=== PATIENT | female | born 1975 | race Caucasian/White ===

== ENCOUNTER 2022-02-06 13:06 | Inpatient (IN) ==
[2022-02-06] MEDS ORDERED: SODIUM CHLORIDE 0.9% 1000ML 2,000 ML IV ONE (14:33)
--- NOTE | 2022-02-06 14:35 | Emergency Department Note ---
Impression & Plan Pyelonephritis, Hypokalemia, Anemia, Leukocytosis, Nausea & vomiting ED Provider Note NAME: FIDEL GUTIERREZ AGE: 46 SEX: F : 1975 ARRIVES VIA: Walk-In INFORMANT: Patient ED PROVIDER(S): Melchor Perdomo DO CHIEF COMPLAINT: Nausea and vomiting HPI: Patient is a 46-year-old female who presents to the ER for nausea and vomiting. Symptoms started Saturday after 22 January. Initially started with fevers for the 2 days and nausea and vomiting. Patient was having diarrhea as well for 2 days. Diarrhea stopped about 10 days ago. The fever stopped after 2 days. She still been having intermittent nausea and vomiting after eating or drinking. She has no pain in her belly currently. Uncertain of her last bowel movement. No dysuria, urgency, or frequency. She has been seen in outside facility had blood cultures blood work and imaging. Blood work showed an elevated white count and her blood cultures were all negative. She has no other complaints at this time. She has been unable to give a stool sample. ROS: See above HPI for pertinent positives & negatives. A total of 10 systems reviewed and were otherwise negative. PAST MEDICAL HISTORY:See Below PAST SURGICAL HISTORY:See Below FAMILY HISTORY:See Below SOCIAL HISTORY:See Below HOME MEDICATIONS:See Below ALLERGIES:See Below VITALS:See Below PHYSICAL EXAMINATION: GENERAL: Sitting up in bed, alert, well appearing, well nourished, no distress, non-toxic EYE EXAM: normal conjunctiva. OROPHARYNX: no exudate, no erythema, lips, buccal mucosa, and tongue normal and mucous membranes are moist NECK: supple, no nuchal rigidity, no adenopathy, non-tender LUNGS: Clear to auscultation. Normal chest wall mechanics HEART: no murmurs, S1 normal and S2 normal ABDOMEN: abdomen soft, non-tender, normo-active bowel sounds, no masses, no rebound or guarding. UPPER EXTREMITIES: upper extremities are grossly normal. LOWER EXTREMITIES: No pitting edema. NEURO EXAM: Normal sensorium, cranial nerves II-XII grossly intact, normal speech, no gross weakness of arms, no gross weakness of legs. MEDICAL DECISION MAKING: Patient is a 46-year-old female who presents ER for above-stated complaint. IV was established blood work is obtained. Labs show a leukocytosis of 15,000. Mild anemia 10.5. Platelets were elevated. BMP with hypokalemia at 2.3. This was repleted IV with 10 mEq 2. LFTs were unremarkable. Magnesium was 1.7. Lipase was normal. UA does show leuks, whites and bacteria. There were no epithelial cells and this consistent with UTI. CT abdomen pelvis confirms pyelonephritis. She was given IV Rocephin as well as IV fluids. Updated bedside. Discussed with hospitalist admitted for further work-up. negative. Triage Nursing notes reviewed. Limited review of prior medical records performed Vital Signs: reviewed and remarkable for tachy Differential diagnosis: Differential diagnoses includes but is not limited to gastritis, peptic ulcer disease, GERD, gallbladder disease, pancreatitis, small bowel obstruction, acute coronary syndrome, pericarditis, ischemic bowel, irritable bowel disease, irritable bowel syndrome, appendicitis, diverticulitis, malignancy, hernia, urinary tract infection, torsion, /ectopic (if female), perforation, trauma, infectious. ER treatment provided: See below Diagnostics interpreted by me: ECG: none Cardiac Monitoring: An order was placed for continuous cardiac monitoring. The monitor shows a rate of 112 with sinus rhythm. Laboratory studies: As stated above and show below. Imaging studies: CT abdomen pelvis shows pyelonephritis Consultation(s): Discussed with RHINA Escobedo for further evaluation Procedures: none Critical Care: None Past Med/Surg History Medical History Anemia GERD (gastroesophageal reflux disease) History of migraine headaches Family History Other Family history non-contributory Social History Smoking Status: Never smoker Hx Alcohol Use: No Hx Substance Use: No Preferred Language: Azeri Communication Ability: Effective System Architect Required: No Beliefs That Will Affect Care: None Current Living Situation: Spouse Other Information That Helps Us Care for You: No Feels Safe at Home: Yes Safety Concerns: Feels Safe At This Time Assistive Devices: None Allergies Allergies Allergy/AdvReac Type Severity Reaction Status Date / Time No Known Allergies Allergy Unverified 02/06/22 17:34 Home Meds Home Medications Medication Instructions Recorded Confirmed acetaminophen 500 mg tablet 1,000 mg PO Q6H PRN Pain 02/06/22 02/06/22 (Tylenol Extra Strength) diphenhydramine HCl 25 mg capsule 25 - 50 mg PO DIRECTED PRN 02/06/22 02/06/22 (Benadryl) allergies omeprazole 40 mg capsule,delayed 40 mg PO DAILY 02/06/22 02/06/22 release ondansetron HCl 4 mg tablet 4 mg PO Q8 PRN Nausea 02/06/22 02/06/22 sumatriptan succinate 100 mg tablet 100 mg PO DIRECTED PRN onset of 02/06/22 02/06/22 migraine topiramate 100 mg tablet 100 mg PO HS 02/06/22 02/06/22 Results & Data (ED) Vital Signs Vital Signs - 24 hr 02/06/22 13:31 02/06/22 15:00 02/06/22 18:00 Temperature 36.9 C Temperature Source Temporal Artery Scan Pulse Rate 118 H Pulse Rate [Radial] 105 H 88 Pulse Rhythm [Radial] Regular Respiratory Rate 18 20 21 Respiratory Effort / Characteristics Non-Labored Respiratory Depth Normal Respiratory Pattern Regular Blood Pressure 129/82 Blood Pressure [Right Arm] 124/84 128/81 Blood Pressure Mean 97 Blood Pressure Mean [Right Arm] 97 96 Pulse Oximetry 97 97 100 Oxygen Delivery Method Room Air Room Air Room Air Sepsis Recent Fever Within 48 Hours No Sepsis New/Unexplained Change in Mental Status No Sepsis Action Taken by Nursing No Action Required Laboratory Data Result diagrams: 02/06/22 14:35 02/06/22 14:35 Lab Results 02/06/22 02/06/22 02/06/22 Range/Units 14:35 14:35 14:45 WBC 15.20 H (4.8-10.8) K/ul RBC 3.87 L (3.93-5.22) M/uL Hgb 10.5 L (12.0-16.0) g/dl Hct 33.7 L (34.1-44.9) % MCV 87.1 (80.0-100.0) fL MCH 27.1 (25.0-34.0) pg MCHC 31.2 L (32.0-36.0) g/dL RDW Std Deviation 53.1 H (36.4-46.3) fL RDW Coeff of Gabriela 16.5 H (11.5-14.5) % Plt Count 782 H (130-400) K/uL MPV 10.2 (9.4-12.3) fL Immature Gran % (Auto) 0.5 % Neut % (Auto) 82.5 % Lymph % (Auto) 11.4 % Clinch % (Auto) 4.4 % Eos % (Auto) 0.9 % Baso % (Auto) 0.3 % Neut # (Auto) 12.54 H (1.4-6.5) K/uL Lymph # (Auto) 1.74 (1.2-3.4) K/uL Clinch # (Auto) 0.67 (0.24-0.82) K/uL Eos # (Auto) 0.13 (0-0.50) K/uL Baso # (Auto) 0.04 (0-0.2) K/uL Immature Gran # (Auto) 0.08 H (0.00-0.02) K/uL Sodium 136 (136-145) mmol/L Potassium 2.3 L* (3.5-5.1) mmol/L Chloride 98 (98-107) mmol/L Carbon Dioxide 27 (21-32) mmol/L Anion Gap 11 (3-11) BUN 9 (6-23) mg/dl Creatinine 1.05 (0.6-1.2) mg/dl Est Cr Clr Drug Dosing 65.9 ml/min Est GFR ( Amer) 74.8 ml/min Est GFR (Non-Af Amer) 64.5 ml/min BUN/Creatinine Ratio 8.6 L (10-20) Glucose 106 H (70-99(Fasting)) mg/dl Calcium 8.7 (8.5-10.1) mg/dl Phosphorus (2.5-4.9) mg/dl Magnesium (1.7-2.4) mg/dl Total Bilirubin 0.3 (0.2-1.0) mg/dl AST 8 L (13-39) U/L ALT 6 L (7-52) U/L Alkaline Phosphatase 94 (34-104) U/L Total Protein 7.5 (6.0-8.3) gm/dl Albumin 3.4 (3.4-5.0) gm/dl Globulin 4.1 H (2.5-4.0) gm/dl Albumin/Globulin Ratio 0.8 L (0.9-2) Lipase 69 (11-82) U/L Urine Color Urine Appearance (Clear) Urine pH (4.5-7.5) Ur Specific [place] (1.000-1.030) Urine Protein (Negative) Urine Glucose (UA) (Negative) Urine Ketones (Negative) Urine Blood (Negative) Urine Nitrite (Negative) Urine Bilirubin (Negative) Urine Urobilinogen (Negative) Ur Leukocyte Esterase (Negative) Urine WBC (Auto) (0-5) /hpf Urine RBC (Auto) (0-4) /hpf U Hyaline Cast (Auto) (0-5) /lpf U Epithel Cells (Auto) (0-5) /lpf Urine Bacteria (Auto) (Negative) Ur Renal Epithelial Cell (0-5) /lpf POC Ur Test NEG (NEG) SARS-CoV-2, RNA, NAAT (NEGATIVE) 02/06/22 02/06/22 02/06/22 Range/Units 14:55 15:52 15:52 WBC (4.8-10.8) K/ul RBC (3.93-5.22) M/uL Hgb (12.0-16.0) g/dl Hct (34.1-44.9) % MCV (80.0-100.0) fL MCH (25.0-34.0) pg MCHC (32.0-36.0) g/dL RDW Std Deviation (36.4-46.3) fL RDW Coeff of Gabriela (11.5-14.5) % Plt Count (130-400) K/uL MPV (9.4-12.3) fL Immature Gran % (Auto) % Neut % (Auto) % Lymph % (Auto) % Clinch % (Auto) % Eos % (Auto) % Baso % (Auto) % Neut # (Auto) (1.4-6.5) K/uL Lymph # (Auto) (1.2-3.4) K/uL Clinch # (Auto) (0.24-0.82) K/uL Eos # (Auto) (0-0.50) K/uL Baso # (Auto) (0-0.2) K/uL Immature Gran # (Auto) (0.00-0.02) K/uL Sodium (136-145) mmol/L Potassium (3.5-5.1) mmol/L Chloride (98-107) mmol/L Carbon Dioxide (21-32) mmol/L Anion Gap (3-11) BUN (6-23) mg/dl Creatinine (0.6-1.2) mg/dl Est Cr Clr Drug Dosing ml/min Est GFR ( Amer) ml/min Est GFR (Non-Af Amer) ml/min BUN/Creatinine Ratio (10-20) Glucose (70-99(Fasting)) mg/dl Calcium (8.5-10.1) mg/dl Phosphorus 2.3 L (2.5-4.9) mg/dl Magnesium 1.7 (1.7-2.4) mg/dl Total Bilirubin (0.2-1.0) mg/dl AST (13-39) U/L ALT (7-52) U/L Alkaline Phosphatase (34-104) U/L Total Protein (6.0-8.3) gm/dl Albumin (3.4-5.0) gm/dl Globulin (2.5-4.0) gm/dl Albumin/Globulin Ratio (0.9-2) Lipase (11-82) U/L Urine Color Yellow Urine Appearance Clear (Clear) Urine pH 6.5 (4.5-7.5) Ur Specific [place] 1.006 (1.000-1.030) Urine Protein Negative (Negative) Urine Glucose (UA) Negative (Negative) Urine Ketones Negative (Negative) Urine Blood Negative (Negative) Urine Nitrite Negative (Negative) Urine Bilirubin Negative (Negative) Urine Urobilinogen Negative (Negative) Ur Leukocyte Esterase 2+ H (Negative) Urine WBC (Auto) 5-10 H (0-5) /hpf Urine RBC (Auto) 0-4 (0-4) /hpf U Hyaline Cast (Auto) 1-5 (0-5) /lpf U Epithel Cells (Auto) 0-5 (0-5) /lpf Urine Bacteria (Auto) 1+ H (Negative) Ur Renal Epithelial Cell 0-5 (0-5) /lpf POC Ur Test (NEG) SARS-CoV-2, RNA, NAAT (NEGATIVE) 02/06/22 Range/Units 16:02 WBC (4.8-10.8) K/ul RBC (3.93-5.22) M/uL Hgb (12.0-16.0) g/dl Hct (34.1-44.9) % MCV (80.0-100.0) fL MCH (25.0-34.0) pg MCHC (32.0-36.0) g/dL RDW Std Deviation (36.4-46.3) fL RDW Coeff of Gabriela (11.5-14.5) % Plt Count (130-400) K/uL MPV (9.4-12.3) fL Immature Gran % (Auto) % Neut % (Auto) % Lymph % (Auto) % Clinch % (Auto) % Eos % (Auto) % Baso % (Auto) % Neut # (Auto) (1.4-6.5) K/uL Lymph # (Auto) (1.2-3.4) K/uL Clinch # (Auto) (0.24-0.82) K/uL Eos # (Auto) (0-0.50) K/uL Baso # (Auto) (0-0.2) K/uL Immature Gran # (Auto) (0.00-0.02) K/uL Sodium (136-145) mmol/L Potassium (3.5-5.1) mmol/L Chloride (98-107) mmol/L Carbon Dioxide (21-32) mmol/L Anion Gap (3-11) BUN (6-23) mg/dl Creatinine (0.6-1.2) mg/dl Est Cr Clr Drug Dosing ml/min Est GFR ( Amer) ml/min Est GFR (Non-Af Amer) ml/min BUN/Creatinine Ratio (10-20) Glucose (70-99(Fasting)) mg/dl Calcium (8.5-10.1) mg/dl Phosphorus (2.5-4.9) mg/dl Magnesium (1.7-2.4) mg/dl Total Bilirubin (0.2-1.0) mg/dl AST (13-39) U/L ALT (7-52) U/L Alkaline Phosphatase (34-104) U/L Total Protein (6.0-8.3) gm/dl Albumin (3.4-5.0) gm/dl Globulin (2.5-4.0) gm/dl Albumin/Globulin Ratio (0.9-2) Lipase (11-82) U/L Urine Color Urine Appearance (Clear) Urine pH (4.5-7.5) Ur Specific [place] (1.000-1.030) Urine Protein (Negative) Urine Glucose (UA) (Negative) Urine Ketones (Negative) Urine Blood (Negative) Urine Nitrite (Negative) Urine Bilirubin (Negative) Urine Urobilinogen (Negative) Ur Leukocyte Esterase (Negative) Urine WBC (Auto) (0-5) /hpf Urine RBC (Auto) (0-4) /hpf U Hyaline Cast (Auto) (0-5) /lpf U Epithel Cells (Auto) (0-5) /lpf Urine Bacteria (Auto) (Negative) Ur Renal Epithelial Cell (0-5) /lpf POC Ur Test (NEG) SARS-CoV-2, RNA, NAAT NEGATIVE (NEGATIVE) Administered Medications Potassium Phosphate 21 mmol/ (Dextrose) 507 mls @ 144 mls/hr IV ONE ONE Stop: 02/06/22 21:46 Last Admin: 02/06/22 18:40 Dose: 144 mls/hr Documented By: VIDAL Discontinued Medications Sodium Chloride (Nss 1000ml) 2,000 mls @ 999 mls/hr IV .Q2H1M ONE Stop: 02/06/22 16:33 Last Admin: 02/06/22 14:53 Dose: 999 mls/hr Documented By: WALESKA Potassium Chloride (K Jeronimo / Wtr) 10 meq in 100 mls @ 100 mls/hr IV Q1H [facility]; Protocol Stop: 02/06/22 17:59 Last Admin: 02/06/22 18:28 Dose: 100 mls/hr Documented By: Infusion: 02/06/22 17:00 Dose: 100 mls/hr Documented By: Admin: 02/06/22 16:00 Dose: 100 mls/hr Documented By: VIDAL Ceftriaxone Sodium (Rocephin) 2,000 mg in 70 mls @ 140 mls/hr IV NOW STA Stop: 02/06/22 17:30 Last Infusion: 02/06/22 18:49 Dose: 0 mls/hr Documented By: Admin: 02/06/22 18:28 Dose: 140 mls/hr Documented By: VIDAL Ioversol (Optiray 320 100ml) 94 ml IV ONCE ONE Stop: 02/06/22 16:34 Last Admin: 02/06/22 16:33 Dose: 94 ml Documented By: CAMPBELL Ketorolac Tromethamine (Ketorolac Tromethamine 15 Mg/Ml Vial) 15 mg IV NOW ONE Stop: 02/06/22 16:40 Last Admin: 02/06/22 16:46 Dose: 15 mg Documented By: VIDAL Pantoprazole Sodium (Pantoprazole 40 Mg Tab) 40 mg PO NOW STA Stop: 02/06/22 18:06 Last Admin: 02/06/22 18:28 Dose: 40 mg Documented By: VIDAL Imaging Data Radiologist's Impression: Abdomen/Pelvis CT 02/06/22 14:33 CT SCAN OF THE ABDOMEN AND PELVIS WITH IV CONTRAST CLINICAL HISTORY: Nausea and vomiting COMPARISON STUDY: No priors. TECHNIQUE: Following the IV administration of 94 cc of Optiray 320, CT scan of the abdomen and pelvis is performed from the lung bases to the proximal femora. Images are reviewed in the axial, sagittal, and coronal planes. IV contrast was administered without complication. A dose lowering technique was utilized adhering to the principles of ALARA. CT DOSE: 407.10 mGy.cm FINDINGS: Lung bases: The heart is normal in size and without pericardial effusion. The lung bases are clear. There is a small hiatal hernia. Liver: The contrast-enhanced liver is normal in size, contour, and attenuation. There is no intrahepatic biliary ductal dilatation. The hepatic veins and portal veins are patent. Gallbladder: Unremarkable. Spleen: Normal in size and attenuation. Pancreas: Unremarkable. Adrenal glands: Unremarkable. Kidneys: The contrast enhanced kidneys are normal in size and without hydroneph rosis. There is heterogeneous enhancement of both kidneys. Urothelial thickening and enhancement is suggested involving both kidneys and along the course of the ureters. Bilateral perinephric stranding is observed. There is a 3 mm nonobstructing calculus in the right kidney. Abdominal vasculature: The abdominal aorta is normal in course and caliber. Bowel: There is no bowel obstruction. There are scattered colonic diverticula without CT evidence of acute diverticulitis. The appendix is well-visualized and normal. Peritoneum: There is no intraperitoneal free air or abdominal ascites. There is a fat-containing umbilical hernia. Lymphadenopathy: None. Pelvic viscera: A labial piercing is noted. The bladder wall appears mildly thickened. The uterus and adnexa are normal as visualized. Skeletal structures: No lytic or blastic lesions are seen. IMPRESSION: 1. Findings suggest cystitis with bilateral ascending urinary tract infection/pyelonephritis. Correlate with clinical findings and urinalysis. 2. There is a small nonobstructing right renal calculus. 3. Normal appendix. ACT 112: Negative or not required by law. Electronically signed by: Nakul Dupont M.D. 02/06/2022 4:40 PM Discharge Plan Visit Data Chief Complaint: Vomiting Stated Complaint: VOMITING ED Provider: Melchor Perdomo Discharge Problem: Pyelonephritis, Hypokalemia, Anemia, Leukocytosis, Nausea & vomiting Patient Disposition: Admitted As Inpatient Forms Stand Alone Forms: [facility] Prescriptions Prescriptions: No Action sumatriptan succinate 100 mg tablet 100 mg PO DIRECTED PRN (Reason: onset of migraine) Rx Instructions: may repeat in 2 hrs. ondansetron HCl 4 mg tablet 4 mg PO Q8 PRN (Reason: Nausea) omeprazole 40 mg capsule,delayed release(DR/EC) 40 mg PO DAILY acetaminophen [Tylenol Extra Strength] 500 mg Tablet 1,000 mg PO Q6H PRN (Reason: Pain) diphenhydramine HCl [Benadryl] 25 mg Capsule 25 - 50 mg PO DIRECTED PRN (Reason: allergies) topiramate 100 mg tablet 100 mg PO HS Referrals Referrals: PCP,NO [Physician] -
[2022-02-06 14:49] LABS: Basophils # (auto) 0.04 K/uL (0-0.2); Basophils % (auto) 0.3 %; Eosinophils # (auto) 0.13 K/uL (0-0.50); Eosinophils % (auto) 0.9 %; Hematocrit (blood only) 33.7 % (34.1-44.9); Hemoglobin 10.5 g/dl (12.0-16.0); Immature Granulocytes # (auto) 0.08 K/uL (0.00-0.02); Immature Granulocytes % (auto) 0.5 %; Lymphocytes # (auto) 1.74 K/uL (1.2-3.4); Lymphocytes % (auto) 11.4 %; Mean Corpuscular Hemoglobin 27.1 pg (25.0-34.0); Mean Corpuscular Hgb Conc 31.2 g/dL (32.0-36.0); Mean Corpuscular Volume 87.1 fL (80.0-100.0); Mean Platelet Volume 10.2 fL (9.4-12.3); Monocytes # (auto) 0.67 K/uL (0.24-0.82); Monocytes % (auto) 4.4 %; Neutrophils # (auto) 12.54 K/uL (1.4-6.5); Neutrophils % (auto) 82.5 %; Platelet Count 782 K/uL (130-400); RDW Coefficient of Variation 16.5 % (11.5-14.5); RDW Standard Deviation 53.1 fL (36.4-46.3); Red Blood Count 3.87 M/uL (3.93-5.22)
[2022-02-06 15:35] LABS: Albumin Globulin Ratio 0.8 (0.9-2); Albumin Level 3.4 gm/dl (3.4-5.0); BUN Creatinine Ratio 8.6 (10-20); Bilirubin,Total 0.3 mg/dl (0.2-1.0); Calcium 8.7 mg/dl (8.5-10.1); Creatinine Clr Calc Pharmacy 65.9 ml/min; Est GFR (African American) 74.8 ml/min; Est GFR (Non-African American) 64.5 ml/min; Globulin 4.1 gm/dl (2.5-4.0); Potassium 2.3 mmol/L (3.5-5.1); Total Protein 7.5 gm/dl (6.0-8.3)
[2022-02-06 15:46] LABS: Appearance Urine Clear (Clear); Bilirubin Urine Negative (Negative); Blood Urine Negative (Negative); Color Urine Yellow; Glucose Urine UA Negative (Negative); Ketones Urine Negative (Negative); Leukocyte Esterase Urine 2+ (Negative); Nitrite Urine Negative (Negative); Protein Urine Negative (Negative); Specific Gravity Urine 1.006 (1.000-1.030); Urobilinogen Urine Negative (Negative); pH Urine 6.5 (4.5-7.5)
[2022-02-06] MEDS: POTASSIUM CHLORIDE / WTR 10 MEQ/100 ML PLCT IV SCH ×3 (16:00→23:57)
[2022-02-06 16:01] LABS: RBC Urine Automated 0-4 /hpf (0-4)
[2022-02-06 16:02] LABS: Bacteria Urine Automated 1+ (Negative); Epithelial Cell Urine Auto 0-5 /lpf (0-5); Renal Epithelial Cells Urine 0-5 /lpf (0-5)
[2022-02-06] MEDS ORDERED: OPTIRAY 320 100ml IV ONE (16:33)
[2022-02-06] MEDS ORDERED: KETOROLAC TROMETHAMINE 15 MG/ML VIAL IV ONE (16:39)
--- NOTE | 2022-02-06 16:42 | CT Scan Report ---
CT SCAN OF THE ABDOMEN AND PELVIS WITH IV CONTRAST CLINICAL HISTORY: Nausea and vomiting COMPARISON STUDY: No priors. TECHNIQUE: Following the IV administration of 94 cc of Optiray 320, CT scan of the abdomen and pelvi s is performed from the lung bases to the proximal femora. Images are reviewed in the axial, sagittal , and coronal planes. IV contrast was administered without complication. A dose lowering technique wa s utilized adhering to the principles of ALARA. CT DOSE: 407.10 mGy.cm FINDINGS: Lung bases: The heart is normal in size and without pericardial effusion. The lung bases are clear. T here is a small hiatal hernia. Liver: The contrast-enhanced liver is normal in size, contour, and attenuation. There is no intrahepa tic biliary ductal dilatation. The hepatic veins and portal veins are patent. Gallbladder: Unremarkable. Spleen: Normal in size and attenuation. Pancreas: Unremarkable. Adrenal glands: Unremarkable. Kidneys: The contrast enhanced kidneys are normal in size and without hydronephrosis. There is hetero geneous enhancement of both kidneys. Urothelial thickening and enhancement is suggested involving bot h kidneys and along the course of the ureters. Bilateral perinephric stranding is observed. There is a 3 mm nonobstructing calculus in the right kidney. Abdominal vasculature: The abdominal aorta is normal in course and caliber. Bowel: There is no bowel obstruction. There are scattered colonic diverticula without CT evidence of acute diverticulitis. The appendix is well-visualized and normal. Peritoneum: There is no intraperitoneal free air or abdominal ascites. There is a fat-containing umbi lical hernia. Lymphadenopathy: None. Pelvic viscera: A labial piercing is noted. The bladder wall appears mildly thickened. The uterus and adnexa are normal as visualized. Skeletal structures: No lytic or blastic lesions are seen. IMPRESSION: 1. Findings suggest cystitis with bilateral ascending urinary tract infection/pyelonephritis. Correla te with clinical findings and urinalysis. 2. There is a small nonobstructing right renal calculus. 3. Normal appendix. ACT 112: Negative or not required by law. Electronically signed by: Nakul Dupont M.D. 02/06/2022 4:40 PM
[2022-02-06] MEDS ORDERED: cefTRIAXone SODIUM 2,000 MG/70 ML BAG IV STA (17:01)
--- NOTE | 2022-02-06 17:41 | History & Physical Report ---
Date of Service February 06, 2022 Assessment & Plan (1) Pyelonephritis: Plan: - WBCs, bacteria, leuk esterase on UA with pyelonephritis seen on CT A/P. Also with a nonobstructing 3 mm stone and right renal calculus. - Has been afebrile for almost 2 weeks, never with urinary symptoms but with persistent nausea and vomiting. - Rocephin 1 g every 12 hours - Received 2L NS bolus in ED, continue with maintenance fluids Normosol at 100 cc/hour - Tylenol ordered for pain/fever. Zofran, Phenergan ordered for nausea and vomiting. (2) Hypokalemia: Plan: - 2.3, after ongoing vomiting/poor p.o. intake over 2 weeks. - 2 bags KCl given in ED, with K-Phos repletion. Also will order 1 g IV mag--borderline normal at 1.7. - Recheck potassium this evening and with a.m. labs tomorrow. (3) Hypophosphatemia: Plan: - 2.9, in setting of ongoing nausea and vomiting x2 weeks. - Replete and recheck with a.m. labs. (4) Nausea & vomiting: Plan: - 2/2 pyelonephritis. Has been ongoing for 2 weeks with minimal p.o. intake. - After ABX and IV hydration, patient is feeling well and would like to try a liquid diet-- Will order for liquid diet and advance as tolerated by patient. - Antiemetics ordered as above. (5) Anemia: Plan: - Hgb 10.5, no evidence of acute bleeding, no baseline labs for reference. Patient had been told she is borderline anemic and should be on iron supplementation in past. - Likely low today as patient was on her period last week. - Follow on daily CBC. (6) GERD (gastroesophageal reflux disease): Plan: - On omeprazole at home, switch to hospital formulation--pantoprazole. - Dose given in ED per patient request. (7) History of migraine headaches: Plan: - Topiramate at night with sumatriptan as needed. Plan - Admit to med telemetry due to hypokalemia. - SCDs for DVT PPx, chemo PPx deferred. - Full code. History of Present Illness Chief Complaint: nausea with vomiting Primary Care Provider: Boubacar Forrest Lizzy Ramirez is a 46-year-old female with history of migraines and GERD who is presenting today with nausea and vomiting. Over the January weekend approximately 2 weeks ago, patient is experiencing mild low back pain and had a count of this to physical activity over the weekend. She then developed fevers with associated nausea and vomiting. After 2 days, her fevers have broke but she continued to be nauseous with frequent vomiting and inability to keep any food or liquids down. Presented to an outside hospital on 01/26, in which she was told she had an elevated white blood cell count and low potassium and was given IV fluids with potassium repletion and discharged home from the ED. Her symptoms persisted so she presented to another hospital ED on 01/29 and again was told she may have a viral infection, was hydrated and given potassium supplementation and sent home. It is now 1 week later and she is not feeling any better, continues to have frequent vomiting, and has not been able to keep anything beyond Jell-O down over the past week. She is still without fever/chills, diarrhea, constipation, chest pain, palpitations, shortness breath, cough, abdominal pain, back pain, or urinary symptoms. In ED, she initially presented tachycardic with heart rate at 118, otherwise vital signs are within normal limits and stable. Labs significant for WBC of 15.20, Hgb 10.5, potassium 2.3. UA with white blood cells, leuk esterase, and bacteria. Urine test negative. CT A/P findings suggestive of pyelonephritis, as well as a nonobstructing 3 mm stone in the right renal calculus. ED course: 2 L NS bolus, potassium repletion, Toradol, Rocephin. Allergies Allergy/AdvReac Type Severity Reaction Status Date / Time No Known Allergies Allergy Unverified 02/06/22 17:34 Home Medications Medication Instructions Recorded Confirmed Type acetaminophen 500 mg tablet 1,000 mg PO Q6H PRN Pain 02/06/22 02/06/22 History (Tylenol Extra Strength) diphenhydramine HCl 25 mg capsule 25 - 50 mg PO DIRECTED PRN 02/06/22 02/06/22 History (Benadryl) allergies omeprazole 40 mg capsule,delayed 40 mg PO DAILY 02/06/22 02/06/22 History release ondansetron HCl 4 mg tablet 4 mg PO Q8 PRN Nausea 02/06/22 02/06/22 History sumatriptan succinate 100 mg tablet 100 mg PO DIRECTED PRN onset of 02/06/22 02/06/22 History migraine topiramate 100 mg tablet 100 mg PO HS 02/06/22 02/06/22 History Past Med/Surg History Medical History Anemia GERD (gastroesophageal reflux disease) History of migraine headaches Family History Other Family history non-contributory Social History Smoking Status: Never smoker Hx Alcohol Use: No Hx Substance Use: No Preferred Language: Divehi Communication Ability: Effective Public Speaking Teacher Required: No Beliefs That Will Affect Care: None Current Living Situation: Spouse Other Information That Helps Us Care for You: No Feels Safe at Home: Yes Safety Concerns: Feels Safe At This Time Assistive Devices: None Review of Systems Review of Systems: Constitutional: Fevers for 2 days 2 weeks ago, general weakness and fatigue, anorexia x2 weeks; no myalgias, anorexia, night sweats Eyes: No diplopia, no worsening or blurred vision ENT: normal hearing, no trouble swallowing Respiratory: No cough, sputum, dyspnea at rest or on exertion Cardiovascular: No chest pain, tightness or palpitations Abdomen: Ongoing nausea and vomiting x2 weeks without abdominal pain, hematemesis, constipation, diarrhea, melena, or hematochezia : Denies dysuria, hematuria, increased urgency/frequency, urinary retention Musculoskeletal: No joint pain, calf pain, swelling Neurologic: No weakness, numbness/tingling, or balance problems Psychiatric: No anxiety or depression Skin: No rash or itch Physical Exam Physical Exam: General: awake, alert, no apparent distress Head: Normocephalic, atraumatic ENT: PERRL, EOMI, no pharyngeal exudate, mucous membranes moist Chest: Clear to auscultation, on room air, no adventitious breath sounds Cardiac: Regular rate and rhythm, no murmur, no JVD, normal peripheral pulses, good capillary refill Abdominal: NABS x 4 quadrants, soft, nontender to palpation, no rebound, guarding or tenderness Extremities: Normal inspection, no peripheral edema or erythema, calfs nontender to palpation Psych: Normal mood and affect Neuro: AAO x 3, strength intact bilaterally and rated 5/5, no motor deficits, speech is clear, no peripheral sensory deficits Skin: no rash or erythema Results & Data Results & Data ([facility]) Vital Signs (Past 12 Hours) Vital Signs Temp Pulse Pulse Resp BP BP Pulse Ox 02/06/22 15:00 105 H 20 124/84 97 02/06/22 13:31 36.9 C 118 H 18 129/82 97 O2 Del Method 02/06/22 15:00 Room Air 02/06/22 13:31 Room Air Laboratory Results Abnormal lab results 02/06/22 02/06/22 02/06/22 Range/Units 14:35 14:35 14:55 WBC 15.20 H (4.8-10.8) K/ul RBC 3.87 L (3.93-5.22) M/uL Hgb 10.5 L (12.0-16.0) g/dl Hct 33.7 L (34.1-44.9) % MCHC 31.2 L (32.0-36.0) g/dL RDW Std Deviation 53.1 H (36.4-46.3) fL RDW Coeff of Gabriela 16.5 H (11.5-14.5) % Plt Count 782 H (130-400) K/uL Neut # (Auto) 12.54 H (1.4-6.5) K/uL Immature Gran # (Auto) 0.08 H (0.00-0.02) K/uL Potassium 2.3 L* (3.5-5.1) mmol/L BUN/Creatinine Ratio 8.6 L (10-20) Glucose 106 H (70-99(Fasting)) mg/dl AST 8 L (13-39) U/L ALT 6 L (7-52) U/L Globulin 4.1 H (2.5-4.0) gm/dl Albumin/Globulin Ratio 0.8 L (0.9-2) Ur Leukocyte Esterase 2+ H (Negative) Urine WBC (Auto) 5-10 H (0-5) /hpf Urine Bacteria (Auto) 1+ H (Negative) Diagnostic Findings Abdomen/Pelvis CT 02/06/22 14:33 CT SCAN OF THE ABDOMEN AND PELVIS WITH IV CONTRAST CLINICAL HISTORY: Nausea and vomiting COMPARISON STUDY: No priors. TECHNIQUE: Following the IV administration of 94 cc of Optiray 320, CT scan of the abdomen and pelvis is performed from the lung bases to the proximal femora. Images are reviewed in the axial, sagittal, and coronal planes. IV contrast was administered without complication. A dose lowering technique was utilized adhering to the principles of ALARA. CT DOSE: 407.10 mGy.cm FINDINGS: Lung bases: The heart is normal in size and without pericardial effusion. The lung bases are clear. There is a small hiatal hernia. Liver: The contrast-enhanced liver is normal in size, contour, and attenuation. There is no intrahepatic biliary ductal dilatation. The hepatic veins and portal veins are patent. Gallbladder: Unremarkable. Spleen: Normal in size and attenuation. Pancreas: Unremarkable. Adrenal glands: Unremarkable. Kidneys: The contrast enhanced kidneys are normal in size and without hydronephrosis. There is heterogeneous enhancement of both kidneys. Urothelial thickening and enhancement is suggested involving both kidneys and along the course of the ureters. Bilateral perinephric stranding is observed. There is a 3 mm nonobstructing calculus in the right kidney. Abdominal vasculature: The abdominal aorta is normal in course and caliber. Bowel: There is no bowel obstruction. There are scattered colonic diverticula without CT evidence of acute diverticulitis. The appendix is well-visualized and normal. Peritoneum: There is no intraperitoneal free air or abdominal ascites. There is a fat-containing umbilical hernia. Lymphadenopathy: None. Pelvic viscera: A labial piercing is noted. The bladder wall appears mildly thickened. The uterus and adnexa are normal as visualized. Skeletal structures: No lytic or blastic lesions are seen. IMPRESSION: 1. Findings suggest cystitis with bilateral ascending urinary tract infection/pyelonephritis. Correlate with clinical findings and urinalysis. 2. There is a small nonobstructing right renal calculus. 3. Normal appendix. ACT 112: Negative or not required by law. Electronically signed by: Nakul Dupont M.D. 02/06/2022 4:40 PM Code Status & VTE Plan Code Status Full Code. Supervising Physician Co-Signing Physician Notes Attending Attestation & Admission Note: Pt seen/examined, chart reviewed, care plan d/w ANNE Chavez. I agree w/ the meyers components of her documentation. 46yo female with h/o GERD & migraines who presents with 2+ weeks of feeling unwell. Initially had a febrile illness which then progressed to refractory nausea/emesis. Emesis occurs sometimes immediately after taking anything by mouth, or sometimes a few hours later. NO abdominal pain. Denies dysuria. Seen at 2 outside hospitals in the last few weeks without a definitive diagnosis. NO sick contacts or travel. Has never had EGD or other GI tests. Mentions she has lost 6 pounds since her illness started. PMH/PSH/allergies/meds/sochx/famhx - reviewed tachy, afebrile, BP wnl gen - nontoxic appearing, NAD, coughing mouth - MM dry heart - tachy, s1 s2, no murmur lungs - CTA b/l abd - soft NT ND BS+; no HSM; no flank tenderness b/l ext - no edema, pulses 2+ b/l skin - no rash labs reviewed (including neg test) CT a/p reviewed A/P: 1. severe hypokalemia 2nd to #2 2. refractory nausea/emesis 3. possible UTI with b/l pyelonephritis 4. h/o migraine headaches 5. sinus tachycardia - resolved with fluid resuscitation if pyelonephritis is truly present her refractory nausea/emesis, 2+ weeks of symptoms, etc are atypical I would have a low threshold for performing other tests if she does not have improvement in GI symptoms with treatment of her UTI (RUQ u/s to r/o biliary tract disease, etc) check TSH - r/o hyperthyroidism contributing to clinical presentation serial labs for low K give additional 40meq of oral K (on top of the 20meq of IV KCL as well as IV K- phos) Bert Harris MD PG Care Time/CCT Total # of Minutes Spent Total Time Spent with Patient: Total time spent is greater than 50% in coordination of care (as documented) at patient's floor/unit and/or counseling patient: Coding Level of Care Code 82520 Initial Inpt Care Lvl 2 Diagnoses Pyelonephritis N12 Hypokalemia E87.6 Hypophosphatemia E83.39 Nausea & vomiting R11.2 Anemia D64.9 GERD (gastroesophageal reflux disease) K21.9 History of migraine headaches Z86.69
[2022-02-06] MEDS ORDERED: POTASSIUM PHOS 3 MMOL/1 ML INFUSION IV STA (18:03)
[2022-02-06] MEDS ORDERED: PANTOprazole 40 MG TAB PO STA (18:05)
[2022-02-06] MEDS ORDERED: POTASSIUM PHOSPHATE 21 MMOL in DEXTROSE 5% 500 ML IV ONE (18:15)
[2022-02-06] MEDS ORDERED: POLYETHYLENE (MIRALAX) 17 GM PACK PO PRN (20:01)
[2022-02-06] MEDS ORDERED: SUMAtriptan succinate 100 MG TAB PO PRN (20:01)
[2022-02-06] MEDS ORDERED: ONDANSETRON INJ 2 MG/ML 2 ML VIAL IV PRN (20:01)
[2022-02-06] MEDS ORDERED: PROMETHAZINE HCL 12.5 MG in SODIUM CHLORIDE 0.9% 50 ML IV PRN (20:01)
[2022-02-06] MEDS ORDERED: ACETAMINOPHEN 500 MG TAB PO PRN (20:01)
[2022-02-06] MEDS ORDERED: MAGNESIUM SULFATE / D5W 1 GM/100 ML BAG IV ONE (20:15)
[2022-02-06] MEDS ORDERED: CALCIUM CARBONATE 500 MG CHEWABLE TAB PO PRN (20:34)
[2022-02-06] MEDS: TOPIRAMATE 100 MG TAB PO SCH (20:40)
[2022-02-06] MEDS ORDERED: POTASSIUM CHLORIDE CRTAB 20 MEQ TABCR PO STA (21:23)
[2022-02-06] MEDS: NORMOSOL-R 1,000 ML IV SCH (22:26)
[2022-02-06 23:10] LABS: Phosphorus 3.2 mg/dl (2.5-4.9); Potassium 2.6 mmol/L (3.5-5.1)
[2022-02-07] MEDS: POTASSIUM CHLORIDE / WTR 10 MEQ/100 ML PLCT IV SCH ×3 (01:02→10:08)
[2022-02-07 06:31] LABS: Basophils # (auto) 0.04 K/uL (0-0.2); Basophils % (auto) 0.3 %; Eosinophils # (auto) 0.14 K/uL (0-0.50); Eosinophils % (auto) 1.1 %; Hematocrit (blood only) 30.7 % (34.1-44.9); Hemoglobin 9.6 g/dl (12.0-16.0); Immature Granulocytes # (auto) 0.05 K/uL (0.00-0.02); Immature Granulocytes % (auto) 0.4 %; Lymphocytes % (auto) 11.3 %; Mean Corpuscular Hemoglobin 26.8 pg (25.0-34.0); Mean Corpuscular Hgb Conc 31.3 g/dL (32.0-36.0); Mean Corpuscular Volume 85.8 fL (80.0-100.0); Mean Platelet Volume 10.3 fL (9.4-12.3); Monocytes % (auto) 5.3 %; Neutrophils # (auto) 10.81 K/uL (1.4-6.5); Neutrophils % (auto) 81.6 %; Platelet Count 747 K/uL (130-400); RDW Coefficient of Variation 16.7 % (11.5-14.5); RDW Standard Deviation 52.1 fL (36.4-46.3); Red Blood Count 3.58 M/uL (3.93-5.22); White Blood Count 13.24 K/ul (4.8-10.8)
[2022-02-07 06:54] LABS: BUN Creatinine Ratio 5.9 (10-20); Calcium 8.1 mg/dl (8.5-10.1); Creatinine Clr Calc Pharmacy 81.4 ml/min; Est GFR (African American) 96.6 ml/min; Est GFR (Non-African American) 83.3 ml/min; Phosphorus 2.3 mg/dl (2.5-4.9); Potassium 2.9 mmol/L (3.5-5.1)
[2022-02-07] MEDS: POTASSIUM CHLORIDE CRTAB 20 MEQ TABCR PO SCH ×3 (08:39→21:25)
[2022-02-07] MEDS ORDERED: PANTOprazole 40 MG TAB PO SCH (09:00)
[2022-02-07] MEDS: NORMOSOL-R 1,000 ML IV SCH ×2 (09:02→18:33)
--- NOTE | 2022-02-07 11:37 | Hospitalist Progress Note ---
Date of Service February 07, 2022 Assessment & Plan (1) Pyelonephritis: Plan: radiographically by way of CT a/p 02/06/22. 2nd e.coli. clinically improving. cont rocephin; can likely change to PO abx tomorrow. plan 14 days of Rx. (2) Hypokalemia: Plan: 2nd to poor oral intake and refractory vomiting over ~2 weeks prior to admission. slowly improving. give PO KCL 40meq TID x 3 doses. give KCL 20meq IV x 1 now. repeat BMP am. mag level wnl. cont telemetry. (3) Hypophosphatemia: Plan: repleted. had improved, then level back down again today. place on k-phos neutral PO TID. (4) Nausea & vomiting: Plan: 2nd to #1? 2nd to severe GERD? other etiology? combination? regardless of etiology -- resolved. cont PPI. cont antiemetics prn. recommend GI f/u post-discharge for long-standing GERD. (5) Anemia: Plan: check Fe studies in am. check B12, check folate in am. high platelets may be 2nd to Fe deficiency if such is found. (6) GERD (gastroesophageal reflux disease): Plan: increase PPI to twice daily starting today. GI f/u post-discharge recommended for consideration of EGD. (7) History of migraine headaches: Plan: Topiramate nightly for prophylaxis. imitrex prn. no issues at this time. Plan keep on tele due to low K cut fluid rate advance diet home tomorrow? Admission and Anticipated Discharge Date Admission Date: February 06, 2022 Subjective patient feeling "much better" requests diet advancement no nausea/emesis since admission GERD symptoms improved no abd pain or back pain tele stable overnight Review of Systems Review of Systems: gen - no fevers or chills pulm - cough improved; no dyspnea GI - no diarrhea - no dysuria Physical Exam Physical Exam: gen - looks much better today, NAD mouth - lips/mucosa moist neck - no JVD heart - RRR, s1 s2, no murmur lungs - CTA b/l abd - soft NT ND BS+; no flank tenderness b/l ext - no edema, pulses 2+ b/l Results & Data Results & Data ([facility]) Vital Signs (Past 12 Hours) Vital Signs Temp Pulse Pulse Resp BP BP Pulse Ox 02/07/22 11:20 36.4 C L 99 H 16 124/87 96 02/07/22 07:46 36.6 C 101 H 18 121/86 94 02/07/22 02:45 37 C 112 H 19 114/74 94 O2 Del Method 02/07/22 11:20 Room Air 02/07/22 07:46 Room Air 02/07/22 02:45 Room Air Laboratory Results Laboratory Results - last 24 hr 02/06/22 02/06/22 02/06/22 14:35 14:35 14:45 WBC 15.20 H RBC 3.87 L Hgb 10.5 L Hct 33.7 L MCV 87.1 MCH 27.1 MCHC 31.2 L RDW Std Deviation 53.1 H RDW Coeff of Gabriela 16.5 H Plt Count 782 H MPV 10.2 Immature Gran % (Auto) 0.5 Neut % (Auto) 82.5 Lymph % (Auto) 11.4 [place] % (Auto) 4.4 Eos % (Auto) 0.9 Baso % (Auto) 0.3 Neut # (Auto) 12.54 H Lymph # (Auto) 1.74 [place] # (Auto) 0.67 Eos # (Auto) 0.13 Baso # (Auto) 0.04 Immature Gran # (Auto) 0.08 H Sodium 136 Potassium 2.3 L* Chloride 98 Carbon Dioxide 27 Anion Gap 11 BUN 9 Creatinine 1.05 Est Cr Clr Drug Dosing 65.9 Est GFR ( Amer) 74.8 Est GFR (Non-Af Amer) 64.5 BUN/Creatinine Ratio 8.6 L Glucose 106 H Calcium 8.7 Phosphorus Magnesium Total Bilirubin 0.3 AST 8 L ALT 6 L Alkaline Phosphatase 94 Total Protein 7.5 Albumin 3.4 Globulin 4.1 H Albumin/Globulin Ratio 0.8 L Lipase 69 TSH Urine Color Urine Appearance Urine pH Ur Specific [place] Urine Protein Urine Glucose (UA) Urine Ketones Urine Blood Urine Nitrite Urine Bilirubin Urine Urobilinogen Ur Leukocyte Esterase Urine WBC (Auto) Urine RBC (Auto) U Hyaline Cast (Auto) U Epithel Cells (Auto) Urine Bacteria (Auto) Ur Renal Epithelial Cell POC Ur Test NEG SARS-CoV-2, RNA, NAAT 02/06/22 02/06/22 02/06/22 14:55 15:52 15:52 WBC RBC Hgb Hct MCV MCH MCHC RDW Std Deviation RDW Coeff of Gabriela Plt Count MPV Immature Gran % (Auto) Neut % (Auto) Lymph % (Auto) [place] % (Auto) Eos % (Auto) Baso % (Auto) Neut # (Auto) Lymph # (Auto) [place] # (Auto) Eos # (Auto) Baso # (Auto) Immature Gran # (Auto) Sodium Potassium Chloride Carbon Dioxide Anion Gap BUN Creatinine Est Cr Clr Drug Dosing Est GFR ( Amer) Est GFR (Non-Af Amer) BUN/Creatinine Ratio Glucose Calcium Phosphorus 2.3 L Magnesium 1.7 Total Bilirubin AST ALT Alkaline Phosphatase Total Protein Albumin Globulin Albumin/Globulin Ratio Lipase TSH Urine Color Yellow Urine Appearance Clear Urine pH 6.5 Ur Specific [place] 1.006 Urine Protein Negative Urine Glucose (UA) Negative Urine Ketones Negative Urine Blood Negative Urine Nitrite Negative Urine Bilirubin Negative Urine Urobilinogen Negative Ur Leukocyte Esterase 2+ H Urine WBC (Auto) 5-10 H Urine RBC (Auto) 0-4 U Hyaline Cast (Auto) 1-5 U Epithel Cells (Auto) 0-5 Urine Bacteria (Auto) 1+ H Ur Renal Epithelial Cell 0-5 POC Ur Test SARS-CoV-2, RNA, NAAT 02/06/22 02/06/22 02/07/22 16:02 22:13 05:53 WBC 13.24 H RBC 3.58 L Hgb 9.6 L Hct 30.7 L MCV 85.8 MCH 26.8 MCHC 31.3 L RDW Std Deviation 52.1 H RDW Coeff of Gabriela 16.7 H Plt Count 747 H MPV 10.3 Immature Gran % (Auto) 0.4 Neut % (Auto) 81.6 Lymph % (Auto) 11.3 [place] % (Auto) 5.3 Eos % (Auto) 1.1 Baso % (Auto) 0.3 Neut # (Auto) 10.81 H Lymph # (Auto) 1.50 [place] # (Auto) 0.70 Eos # (Auto) 0.14 Baso # (Auto) 0.04 Immature Gran # (Auto) 0.05 H Sodium Potassium 2.6 L Chloride Carbon Dioxide Anion Gap BUN Creatinine Est Cr Clr Drug Dosing Est GFR ( Amer) Est GFR (Non-Af Amer) BUN/Creatinine Ratio Glucose Calcium Phosphorus 3.2 Magnesium Total Bilirubin AST ALT Alkaline Phosphatase Total Protein Albumin Globulin Albumin/Globulin Ratio Lipase TSH Urine Color Urine Appearance Urine pH Ur Specific [place] Urine Protein Urine Glucose (UA) Urine Ketones Urine Blood Urine Nitrite Urine Bilirubin Urine Urobilinogen Ur Leukocyte Esterase Urine WBC (Auto) Urine RBC (Auto) U Hyaline Cast (Auto) U Epithel Cells (Auto) Urine Bacteria (Auto) Ur Renal Epithelial Cell POC Ur Test SARS-CoV-2, RNA, NAAT NEGATIVE 02/07/22 02/07/22 05:53 05:53 WBC RBC Hgb Hct MCV MCH MCHC RDW Std Deviation RDW Coeff of Gabriela Plt Count MPV Immature Gran % (Auto) Neut % (Auto) Lymph % (Auto) [place] % (Auto) Eos % (Auto) Baso % (Auto) Neut # (Auto) Lymph # (Auto) [place] # (Auto) Eos # (Auto) Baso # (Auto) Immature Gran # (Auto) Sodium 141 Potassium 2.9 L Chloride 109 H Carbon Dioxide 24 Anion Gap 8 BUN 5 L Creatinine 0.85 Est Cr Clr Drug Dosing 81.4 Est GFR ( Amer) 96.6 Est GFR (Non-Af Amer) 83.3 BUN/Creatinine Ratio 5.9 L Glucose 124 H Calcium 8.1 L Phosphorus 2.3 L Magnesium 2.0 Total Bilirubin AST ALT Alkaline Phosphatase Total Protein Albumin Globulin Albumin/Globulin Ratio Lipase TSH 1.320 Urine Color Urine Appearance Urine pH Ur Specific [place] Urine Protein Urine Glucose (UA) Urine Ketones Urine Blood Urine Nitrite Urine Bilirubin Urine Urobilinogen Ur Leukocyte Esterase Urine WBC (Auto) Urine RBC (Auto) U Hyaline Cast (Auto) U Epithel Cells (Auto) Urine Bacteria (Auto) Ur Renal Epithelial Cell POC Ur Test SARS-CoV-2, RNA, NAAT Diagnostic Findings urine cx - e.coli PG Care Time/CCT Total # of Minutes Spent Total Time Spent with Patient: Total time spent is greater than 50% in coordination of care (as documented) at patient's floor/unit and/or counseling patient: Coding Level of Care Code 91157 Subseq Hosp Care Lvl 2 Diagnoses Pyelonephritis N12 Hypokalemia E87.6 Hypophosphatemia E83.39 Nausea & vomiting R11.2 Anemia D64.9 GERD (gastroesophageal reflux disease) K21.9 History of migraine headaches Z86.69
--- NOTE | 2022-02-07 16:50 | Electrocardiogram Report ---
Test Reason : Blood Pressure : / mmHG Vent. Rate : 099 BPM Atrial Rate : 099 BPM P-R Int : 156 ms QRS Dur : 088 ms QT Int : 350 ms P-R-T Axes : 054 -21 020 degrees QTc Int : 449 ms Normal sinus rhythm Cannot rule out Anterior infarct , age undetermined Abnormal ECG No previous ECGs available Confirmed by Andre Amaral ([id number]) on 02/07/2022 4:50:05 PM Referred By: Boubacar Forrest Confirmed By:Andre Amaral
[2022-02-07] MEDS ORDERED: cefTRIAXone SODIUM 2,000 MG in DEXTROSE 5% 50 ML IV SCH (18:00)
[2022-02-07] MEDS: POT PHOSPHATE MONOBASIC W/ SOD TAB PO SCH (21:23)
[2022-02-07] MEDS: PANTOprazole 40 MG TAB PO SCH (21:25)
[2022-02-07] MEDS: TOPIRAMATE 100 MG TAB PO SCH (21:25)
[2022-02-08 06:44] LABS: Hematocrit (blood only) 30.7 % (34.1-44.9); Hemoglobin 9.4 g/dl (12.0-16.0); Mean Corpuscular Hemoglobin 26.6 pg (25.0-34.0); Mean Corpuscular Hgb Conc 30.6 g/dL (32.0-36.0); Mean Platelet Volume 10.1 fL (9.4-12.3); Platelet Count 715 K/uL (130-400); RDW Coefficient of Variation 16.3 % (11.5-14.5); RDW Standard Deviation 51.7 fL (36.4-46.3); Red Blood Count 3.53 M/uL (3.93-5.22); White Blood Count 9.07 K/ul (4.8-10.8)
[2022-02-08 07:20] LABS: BUN Creatinine Ratio 7.4 (10-20); Est GFR (African American) 123.3 ml/min; Est GFR (Non-African American) 106.4 ml/min; Potassium 3.3 mmol/L (3.5-5.1)
[2022-02-08 07:21] LABS: Ferritin 72.5 ng/ml (8-388)
[2022-02-08 07:27] LABS: Folate (Folic Acid) 8.55 ng/ml (>5.38)
[2022-02-08] MEDS ORDERED: POTASSIUM CHLORIDE CRTAB 20 MEQ TABCR PO STA (07:31)
[2022-02-08] MEDS: NORMOSOL-R 1,000 ML IV SCH (07:45)
[2022-02-08] MEDS: POT PHOSPHATE MONOBASIC W/ SOD TAB PO SCH ×2 (08:06→13:29)
[2022-02-08] MEDS: PANTOprazole 40 MG TAB PO SCH (08:07)
[2022-02-08] MEDS ORDERED: ADVANCED PROBIOTIC 1250 MG CAPSULE PO SCH (09:30)
--- NOTE | 2022-02-08 11:53 | Discharge Summary ---
Date of Service February 08, 2022 Admission HPI Per Admitting Provider Lizzy Ramirez is a 46-year-old female with history of migraines and GERD who is presenting today with nausea and vomiting. Over the January weekend approximately 2 weeks ago, patient is experiencing mild low back pain and had a count of this to physical activity over the weekend. She then developed fevers with associated nausea and vomiting. After 2 days, her fevers have broke but she continued to be nauseous with frequent vomiting and inability to keep any food or liquids down. Presented to an outside hospital on 01/26, in which she was told she had an elevated white blood cell count and low potassium and was given IV fluids with potassium repletion and discharged home from the ED. Her symptoms persisted so she presented to another hospital ED on 01/29 and again was told she may have a viral infection, was hydrated and given potassium supplementation and sent home. It is now 1 week later and she is not feeling any better, continues to have frequent vomiting, and has not been able to keep anything beyond Jell-O down over the past week. She is still without fever/chills, diarrhea, constipation, chest pain, palpitations, shortness breath, cough, abdominal pain, back pain, or urinary symptoms. In ED, she initially presented tachycardic with heart rate at 118, otherwise vital signs are within normal limits and stable. Labs significant for WBC of 15.20, Hgb 10.5, potassium 2.3. UA with white blood cells, leuk esterase, and bacteria. Urine test negative. CT A/P findings suggestive of pyelonephritis, as well as a nonobstructing 3 mm stone in the right renal calculus. ED course: 2 L NS bolus, potassium repletion, Toradol, Rocephin. Discharge Exam gen - looks much better today, NAD mouth - lips/mucosa moist neck - no JVD heart - RRR, s1 s2, no murmur lungs - CTA b/l abd - soft NT ND BS+; no flank tenderness b/l ext - no edema, pulses 2+ b/l Discharge Data Allergies Allergy/AdvReac Type Severity Reaction Status Date / Time No Known Allergies Allergy Unverified 02/06/22 17:34 Consultations 02/06/22 17:02 ED Decision to Admit Stat Ordered Studies 02/06/22 14:33 CT Abd and Pelvis [CT abd pelvis IV con only] Stat Hospital Course (1) Pyelonephritis: radiographically by way of CT a/p 02/06/22. 2nd e.coli. clinically improving. cont rocephin; can likely change to PO abx tomorrow. plan 14 days of Rx. (2) Hypokalemia: 2nd to poor oral intake and refractory vomiting over ~2 weeks prior to admission. slowly improving. give PO KCL 40meq TID x 3 doses. give KCL 20meq IV x 1 now. repeat BMP am. mag level wnl. cont telemetry. (3) Hypophosphatemia: repleted. had improved, then level back down again today. place on k-phos neutral PO TID. (4) Nausea & vomitinnd to #1? 2nd to severe GERD? other etiology? combination? regardless of etiology -- resolved. cont PPI. cont antiemetics prn. recommend GI f/u post-discharge for long-standing GERD. (5) Anemia: check Fe studies in am. check B12, check folate in am. high platelets may be 2nd to Fe deficiency if such is found. (6) GERD (gastroesophageal reflux disease): increase PPI to twice daily starting today. GI f/u post-discharge recommended for consideration of EGD. (7) History of migraine headaches: Topiramate nightly for prophylaxis. imitrex prn. no issues at this time. Plan keep on tele due to low K cut fluid rate advance diet home tomorrow? Discharge Plan Discharge Items Patient Disposition: Home - Self-Care Reason For Visit: PYELONEPHRITIS Discharge Diagnosis: 1. Urinary tract infection / bilateral pyelonephritis 2. Chronic reflux disease 3. Iron deficiency anemia - stable; discharge hemoglobin level 9.4 4. High platelets - improving; discharge platelet level 715 5. Low potassium - improving; discharge potassium level 3.3 Activity: As commented below Activity Comment: gradually increase your activities over the next few days as tolerated Exercise/Sports: Wait until after follow-up appointment Driving/Machine Use: Resume 1 day after discharge Non-emergency contact: Primary Care Provider and Bench Jeweler Call non-emergency contact if: you have any medication questions, your symptoms worsen and you have a fever Follow-up/Referrals: Paul Polk, [Outside Practitioners] - (first available - diagnosis - chronic reflux disease ) Boubacar Forrest D.O. [Primary Care Provider] - (see Dr Forrest within 5-7 days ) Diet: Regular Addtl Attending Provider Instructions: Mrs Ramirez, George were hospitalized for severe nausea with vomiting of 2+ weeks duration. You were quite dehydrated and had very low potassium upon admission. The low potassium was due to the vomiting and difficulty eating/drinking at home. You had evidence of urinary tract infection and your CT scan of the abdomen showed the infection had gone into both kidneys. This is called "pyelonephritis." (see handout) You were treated with fluids, potassium supplements, and IV antibiotics along with nausea medication. Your potassium is just about normal today, your infection is clearing, and you are now tolerating a diet. The vomiting has stopped. At time of admission we noted that you were anemic (low red cells). Your initial hemoglobin level was 10.5. Your iron levels suggest that you likely have iron deficiency. Your B12 and folate levels were normal. We also noted high platelets which is likely due to the infection as well as your iron deficiency. The platelets should normalize as you clear your infection and as you replace your low iron. Finally, you reported long-standing heartburn/reflux troubles. It is possible that severe reflux/"GERD" was contributing to your vomiting as well. Recommendations - 1. antibiotics - cefdinir 300mg twice daily x 12 days, first dose TONIGHT. 2. probiotics - take daily for 14 days. This may help prevent diarrhea from the cefdinir. Also try to eat some extra yogurt each day while on the cefdinir. 3. low potassium - take a potassium supplement daily for 3 days. Start this TOMORROW. 4. low iron levels - take an [id number] iron supplement (Ferrous sulfate) 325mg once daily. Please speak to your family doctor about getting IV iron treatments (people usually need about 3 infusions) which could be given as an outpatient in [place]. If you receive IV iron then oral supplement would not be needed. Your hemoglobin level during the stay was 9.4 to 10.5 (normal >12). 5. GI referral - we are in the process of trying to refer you to a GI specialist in [place] for your reflux disease. See separate section. 6. GERD medication - please: * STOP your omeprazole * START pantoprazole 40mg twice daily x 14 days, then cut back to once daily thereafter; start the pantoprazole TONIGHT. 7. we noticed that your pulse (heart rate) was a bit fast throughout the stay (low 100s). Anemia could be making this worse. Your infection can also contribute to rapid pulse. Your TSH thyroid level was normal (you do not have over-active thyroid). Please talk to your family doctor about obtaining an "echocardiogram" which can check your heart and ensure your heart is healthy. 8. plenty of good hydration/fluids over the next few days as you recover from your illness. 9. please ask your family doctor to recheck a CBC and BMP at time of hospital follow-up (within 5 days is ideal). Follow-up - see separate section Return to any hospital if - * you have fevers over 100 degrees * you have recurrent vomiting * you have abdominal pains * you have back pains * you develop severe diarrhea * any other concerns It was our pleasure caring for you at [facility]! Please continue to feel better, Dr Harris Pending Studies at Discharge: No Stand-Alone Forms: My [facility], Work/School Release, Smoking Cessation Medications and DC Order Prescriptions: New cefdinir 300 mg Capsule 300 mg PO BID 12 Days Qty: 24 0RF Rx Instructions: first dose PM of 02/08/22 pantoprazole [Protonix] 40 mg tablet,delayed release (DR/EC) 40 mg PO BID Qty: 60 1RF Rx Instructions: take 1 tab PO BID x 14 days, then 1 tab po qd thereafter. ferrous sulfate 325 mg (65 mg iron) tablet 325 mg PO DAILY Qty: 30 2RF Rx Instructions: purchase [id number] Saccharomyces boulardii 250 mg capsule 250 mg PO DAILY 14 Days Qty: 14 0RF potassium chloride 20 mEq tablet extended release 20 meq PO DAILY 3 Days Qty: 3 0RF Rx Instructions: first dose 02/09/22. Continued sumatriptan succinate 100 mg tablet 100 mg PO DIRECTED PRN (Reason: onset of migraine) Rx Instructions: may repeat in 2 hrs. ondansetron HCl 4 mg tablet 4 mg PO Q8 PRN (Reason: Nausea) acetaminophen [Tylenol Extra Strength] 500 mg Tablet 1,000 mg PO Q6H PRN (Reason: Pain) diphenhydramine HCl [Benadryl] 25 mg Capsule 25 - 50 mg PO DIRECTED PRN (Reason: allergies) topiramate 100 mg tablet 100 mg PO HS Discontinued omeprazole 40 mg capsule,delayed release(DR/EC) 40 mg PO DAILY Discharge Orders: Discharge Order (Routine); Ordered 02/08/22 Ordered By: Bert Epps/Other Patient Handouts: Anemia, UTIs Understanding, ED GERD (Adult), ED Pyelonephritis, Female (Adult) Admission Data Admit Date/Time: 02/06/22 17:42 Attending Provider: Bert Harris Admit Provider: Bert Harris Primary Care Provider: Boubacar Forrest Other Providers: Bert Harris Other Interventions: Discharge Summary Assessment (RN) Last Done: 02/08/22 11:41 Coding Diagnoses Pyelonephritis N12 Hypokalemia E87.6 Hypophosphatemia E83.39 Nausea & vomiting R11.2 Anemia D64.9 GERD (gastroesophageal reflux disease) K21.9 History of migraine headaches Z86.69
[2022-02-08] MEDS ORDERED: CEFDINIR 300 MG CAP PO SCH (21:00)
== END 2022-02-08 13:31 | disposition home or self-care (01) | DRG 690 ==
LOC: ED 13:06 → 2N 17:42